=== PATIENT | female | born 1965 ===

== ENCOUNTER 2016-12-29 19:59 | Emergency (ER) | payer OTHER ==
[2016-12-29 20:00] VITALS: BMI 29.2
--- NOTE | 2016-12-29 21:11 | C.PDOC ---
History Of Present Illness A 51 year old female presents to the emergency room for the evaluation of bilateral neck pain over the past few days. Patient describes the pain as a non- radiating, aching sensation that is reproducible and worst with movement. Patient denies any trauma/injury, fever, headaches, dizziness, chest pain, shortness of breath, or any other complaints. At the time of evaluation, patient was eating and leaning forward without any discomfort. Time Seen by Provider: 12/29/16 20:42 Chief Complaint (Nursing): Back Pain History Per: Patient History/Exam Limitations: no limitations Onset/Duration Of Symptoms: Days Current Symptoms Are (Timing): Still Present Quality Of Discomfort: Aching, "Pain" Severity: Mild Previous Symptoms: None Associated Symptoms: None Exacerbating Factor(s): Movement Recent travel outside of the [place]: No Past Medical History Reviewed: Historical Data, Nursing Documentation, Vital Signs Vital Signs: Last Vital Signs Temp 98.2 F 12/29/16 21:16 Pulse 81 12/29/16 21:16 Resp 18 12/29/16 21:16 BP 105/64 12/29/16 21:16 Pulse Ox 97 12/29/16 21:22 - Medical History PMH: Anxiety, Asthma, Bipolar Disorder, COPD, Depression Denies: HIV, HTN, Chronic Kidney Disease, Seizures, Sexually Transmitted Disease Surgical History: Tonsillectomy Family History: States: Unknown Family Hx - Social History Hx Tobacco Use: No Hx Alcohol Use: No Hx Substance Use: No - Immunization History Hx Tetanus Toxoid Vaccination: No Hx Influenza Vaccination: No Hx Pneumococcal Vaccination: No Review Of Systems Except As Marked, All Systems Reviewed And Found Negative. Constitutional: Negative for: Fever Cardiovascular: Negative for: Chest Pain Respiratory: Negative for: Shortness of Breath Musculoskeletal: Positive for: Neck Pain (Bilateral neck pain) Neurological: Negative for: Headache, Dizziness Physical Exam - Physical Exam Appears: Well, Non-toxic, No Acute Distress Skin: Normal Color, Warm, Dry, No Rash, No Ecchymosis Head: Atraumatic, Normacephalic Eye(s): bilateral: Normal Inspection Ear(s): Bilateral: Normal Nose: Normal Oral Mucosa: Moist Throat: Normal, No Erythema, No Exudate Neck: Normal ROM, Supple, Other (Bilateral tenderness aligning the trapezius muscle over the upper back with mild muscle spasms.) Cardiovascular: Rhythm Regular Respiratory: Normal Breath Sounds, No Rales, No Rhonchi, No Wheezing Gastrointestinal/Abdominal: Soft, No Tenderness, No Guarding, No Rebound Back: Normal Inspection, No CVA Tenderness, No Vertebral Tenderness Extremity: Normal ROM, No Tenderness Neurological/Psych: Oriented x3, Normal Speech, Normal Motor, Normal Sensation ED Course And Treatment O2 Sat by Pulse Oximetry: 97 Pulse Ox Interpretation: Normal Progress Note: On re-evaluation, pt is afebrile, hemodynamiclay stable. Tolerate Po well in ED. Ambulatory in ED, not in any apparent distress. PulseOx 97% RA. ENT: (-) acute findings. neck: Exam c/w cervical strain. (-) meningeal sign,. Lungs: CTA B/L, BS equal B/L. Abd: benign, (-) guarding, (-) rebound, (-)loclaized tenderness. Back: (-) CVA tenderness. Pt has clinical findings c/w cervical strain. Parent advised on course of ds. ref. to F/u with PMD in 2-3 days for re-eval. Disposition Counseled Patient/Family Regarding: Diagnosis, Need For Followup, Rx Given - Disposition Referrals: Lanie Soni MD [Medical Doctor] - Disposition: HOME/ ROUTINE Disposition Time: 21:09 Condition: GOOD Additional Instructions: Light duty to neck area take pain medication as prescribed Follow up with PMD In 2-3 days for re-evaluation. Return to ED if any worsening or new changes. Prescriptions: Ibuprofen [Motrin] 400 mg PO Q6 #20 tab Instructions: Cervical Sprain (ED) Print Language: LITHUANIAN - Clinical Impression Clinical Impression: Cervical strain - Scribe Statement The provider has reviewed the documentation as recorded by the Shannon Cervantes Provider Scribe Attestation: All medical record entries made by the Shannon were at my direction and personally dictated by me. I have reviewed the chart and agree that the record accurately reflects my personal performance of the history, physical exam, medical decision making, and the department course for this patient. I have also personally directed, reviewed, and agree with the discharge instructions and disposition.
[2016-12-29 21:16] VITALS: BP 105/64; PULSE 81; RESP 18; TEMP 98.2
[2016-12-29 21:17] VITALS: O2SAT 97
== END 2016-12-29 21:23 | disposition home or self-care (01) ==
LOC: C.ER 19:59
DX: S16.1XXA Strain of muscle, fascia and tendon at neck level, initial encounter (principal); X58.XXXA Exposure to other specified factors, initial encounter; Y93.9 Activity, unspecified; Y92.9 Unspecified place or not applicable

== ENCOUNTER 2017-10-24 17:40 | Emergency (ER) | payer SELFPAY ==
[2017-10-24 18:05] VITALS: BMI 27.8
--- NOTE | 2017-10-24 18:11 | C.PDOC ---
History Of Present Illness 52 year old female presents to the emergency room for the evaluation of Left upper back pain developed for past few days. Patient describes the pain as localized, non-radiating, aching and worst with movement. Patient reports, (+) cold sx for past fe weeks associated with productive cough with clear sputum. Otherwise, Patient denies any trauma/injury, fever, chills, headaches, dizziness , chest pain, shortness of breath, dyspnea, diaphoresis, palpitation, abd. pain , N/V/D, back pain, UTI sx, denies any other complaints. Ambulate to ED, not in any apparent distress. Time Seen by Provider: 10/24/17 18:09 Chief Complaint (Nursing): Back Pain Past Medical History Reviewed: Historical Data, Nursing Documentation, Vital Signs Vital Signs: Last Vital Signs Temp 98.0 F 10/24/17 18:13 Pulse 86 10/24/17 18:13 Resp 18 10/24/17 18:13 BP 112/73 10/24/17 18:13 Pulse Ox 98 10/24/17 18:13 - Medical History PMH: Anxiety, Asthma, Bipolar Disorder, COPD, Depression Denies: HIV, HTN, Chronic Kidney Disease, Seizures, Sexually Transmitted Disease Surgical History: Tonsillectomy Family History: States: Unknown Family Hx - Social History Hx Tobacco Use: No Hx Alcohol Use: No Hx Substance Use: No - Immunization History Hx Tetanus Toxoid Vaccination: No Hx Influenza Vaccination: No Hx Pneumococcal Vaccination: No Review Of Systems Except As Marked, All Systems Reviewed And Found Negative. Constitutional: Negative for: Fever, Chills ENT: Negative for: Throat Pain, Throat Swelling Cardiovascular: Negative for: Chest Pain Respiratory: Positive for: Cough. Negative for: Shortness of Breath, Wheezing Gastrointestinal: Negative for: Nausea, Vomiting, Abdominal Pain Musculoskeletal: Positive for: Back Pain Skin: Negative for: Rash Neurological: Negative for: Weakness, Numbness, Altered Mental Status, Headache , Dizziness Physical Exam - Physical Exam Appears: Well, Non-toxic, No Acute Distress Skin: Normal Color, Warm, Dry, No Rash Head: Normacephalic Eye(s): bilateral: PERRL Nose: No Flaring, No Discharge Oral Mucosa: Moist Throat: No Erythema, No Drooling Neck: Supple Chest: Symmetrical, No Deformity Cardiovascular: Rhythm Regular, No Murmur, No JVD Respiratory: No Decreased Breath Sounds, No Accessory Muscle Use, No Stridor, No Wheezing Gastrointestinal/Abdominal: Soft, No Tenderness, No Distention, No Guarding Back: No CVA Tenderness, No Vertebral Tenderness, Other (Right periscapular tenderness. No skin changes, no palpable deformity.) Extremity: Normal ROM, No Deformity, No Swelling Neurological/Psych: Oriented x3, Normal Speech ED Course And Treatment O2 Sat by Pulse Oximetry: 98 Pulse Ox Interpretation: Normal - Radiology CXR: Interpreted by Me, Viewed By Me CXR Interpretation: Yes: Other (increase peribrochial markings B/L) Progress Note: On re-eval, pt is afebrile, hemodynamicaly stable. NOn-toxic. Ambulatory in ED with stable gait. PusleOx 98% RA. ENT: no acute findings. neck: Supple, (-) JVD, (-) carotid bruits b/L. Lungs: CTA B/L, BS equal B/L. ABd: benign. Neurologicaly intact. CXR review (+) incr. peribrochila markings B/L, (-) consolidation. Pt has clinical findings c/w Right upper back strain, bronchitis. Pt advised. ref. to F/u with PMD in 2-3 days for re-eavl. return to ED if any worsening or new changes. Disposition Counseled Patient/Family Regarding: Studies Performed, Diagnosis, Need For Followup - Disposition Referrals: Robson Petty MD [Non-Staff] - Disposition: HOME/ ROUTINE Disposition Time: 19:31 Condition: STABLE Additional Instructions: take medication as prescribed Follow up with PMD in 2-3 days for re-evaluation. return to ED if any worsening or new changes. Prescriptions: Albuterol HFA [Ventolin HFA 90 mcg/actuation (8 g)] 1 puff IH Q6 #1 inhaler Azithromycin [Zithromax] 250 mg PO DAILY #4 tab Ibuprofen [Motrin] 1 tab PO TID PRN #14 tab PRN Reason: Pain Instructions: Acute Bronchitis (ED) Forms: [employer] (Lao) Print Language: BULGARIAN - Clinical Impression Clinical Impression: Bronchitis
[2017-10-24 18:13] VITALS: BP 112/73; PULSE 86; RESP 18; TEMP 98; O2SAT 98
--- NOTE | 2017-10-25 08:12 | RAD ---
HISTORY: Cough COMPARISON: Portable chest 08/31/2016. TECHNIQUE: Chest PA and lateral FINDINGS: LUNGS: No active pulmonary disease. PLEURA: No significant pleural effusion identified. No pneumothorax apparent. CARDIOVASCULAR: Normal. OSSEOUS STRUCTURES: No significant abnormalities. VISUALIZED UPPER ABDOMEN: Normal. OTHER FINDINGS: None. IMPRESSION: Stable chest radiography. No interval acute infiltrate, pleural effusion or pneumothorax identified.
== END 2017-10-24 20:04 | disposition home or self-care (01) ==
LOC: C.ER 17:40
DX: J40 Bronchitis, not specified as acute or chronic (principal)

== ENCOUNTER 2017-12-22 18:27 | Emergency (ER) | payer MEDICARE, MEDICAID ==
[2017-12-22 18:53] VITALS: RESP 18; TEMP 98; O2SAT 99; BMI 32.5
--- NOTE | 2017-12-22 20:35 | C.PDOC ---
History Of Present Illness 52-year-old female, presents to the emergency department with complaints of two month duration of right elbow pain s/p slamming elbow in door 10/26. Patient denies numbness/weakness. Time Seen by Provider: 12/22/17 19:07 Chief Complaint (Nursing): Upper Extremity Problem/Injury History Per: Patient History/Exam Limitations: no limitations Current Symptoms Are (Timing): Still Present Pain Scale Rating Of: 5 Recent travel outside of the [place]: No Past Medical History Reviewed: Historical Data, Nursing Documentation, Vital Signs Vital Signs: Last Vital Signs Temp 98.0 F 12/22/17 20:48 Pulse 90 12/22/17 20:48 Resp 18 12/22/17 20:48 BP 108/70 12/22/17 20:48 Pulse Ox 99 12/22/17 22:00 - Medical History PMH: Anxiety, Asthma, Bipolar Disorder, COPD, Depression Denies: HIV, HTN, Chronic Kidney Disease, Seizures, Sexually Transmitted Disease Surgical History: Tonsillectomy Family History: States: No Known Family Hx - Social History Hx Tobacco Use: No Hx Alcohol Use: No Hx Substance Use: No - Immunization History Hx Tetanus Toxoid Vaccination: No Hx Influenza Vaccination: No Hx Pneumococcal Vaccination: No Review Of Systems Except As Marked, All Systems Reviewed And Found Negative. Constitutional: Negative for: Fever Musculoskeletal: Positive for: Other (right elbow pain) Neurological: Negative for: Weakness, Numbness Physical Exam - Physical Exam Appears: Well, Non-toxic, No Acute Distress Skin: Normal Color, Warm, Dry, No Rash Head: Atraumatic, Normacephalic Eye(s): bilateral: Normal Inspection, PERRL, EOMI Oral Mucosa: Moist Neck: Normal ROM, Supple Extremity: Normal ROM, Capillary Refill (<2 seconds), No Deformity, Other ( Minimal tenderness and swelling to right lateral elbow. FROM) Pulses: Left Brachial: Normal, Right Brachial: Normal, Left Radial: Normal, Right Radial: Normal Neurological/Psych: Oriented x3, Normal Speech, Normal Motor, Normal Sensation Gait: Steady ED Course And Treatment O2 Sat by Pulse Oximetry: 99 (RA) Pulse Ox Interpretation: Normal Disposition - Disposition Referrals: [facility] [Outside] Disposition: HOME/ ROUTINE Disposition Time: 20:15 Condition: FAIR Additional Instructions: Follow up with the medical doctor within 1-2 days. Return if worsened. Prescriptions: Cyclobenzaprine [Cyclobenzaprine HCl] 10 mg PO BID #14 tab Naproxen [Naprosyn] 500 mg PO BID #20 tab Instructions: Tendonitis Forms: [facility] [employer] (Kiswahili) Print Language: BRUNEIAN - POA Present On Arrival: None - Clinical Impression Clinical Impression: Tendonitis - Scribe Statement The provider has reviewed the documentation as recorded by the Scribe (Kelsea Gee) All medical record entries made by the Scribe were at my direction and personally dictated by me. I have reviewed the chart and agree that the record accurately reflects my personal performance of the history, physical exam, medical decision making, and the department course for this patient. I have also personally directed, reviewed, and agree with the discharge instructions and disposition.
[2017-12-22 20:49] VITALS: BP 108/70; PULSE 90
--- NOTE | 2017-12-23 09:13 | RAD ---
PROCEDURE: Radiographs of the right elbow. HISTORY: ELBOW INJURY 2 months ago COMPARISON: No prior. FINDINGS: BONES: Normal. No fracture. JOINTS: Normal. No osteoarthritis. SOFT TISSUES: Normal. JOINT EFFUSION: None. OTHER FINDINGS: None. IMPRESSION: Unremarkable radiographs of the right elbow.
== END 2017-12-22 20:48 | disposition home or self-care (01) ==
LOC: C.ER 18:27
DX: M77.9 Enthesopathy, unspecified (principal)

== ENCOUNTER 2017-12-30 14:38 | Emergency (ER) | payer MEDICARE, MEDICAID ==
[2017-12-30 14:39] VITALS: BMI 27.8
[2017-12-30 14:50] VITALS: BP 107/75
[2017-12-30] MEDS ORDERED: Albuterol-Ipratrop 3 mg / 0.5 (3 ml) UD ONE (15:28)
[2017-12-30] MEDS: Albuterol-Ipratrop 3 mg / 0.5 (3 ml) UD IH SCH (15:33)
--- NOTE | 2017-12-30 15:56 | C.PDOC ---
History Of Present Illness 52 year old female presents to the emergency room with sudden onset of wheezing. Patient reports that she ate a "spicy onion" in a salad, which resulted in palpitation, difficulty breathing, and dryness in her throat. Patient reports that she is asthmatic, and ran out of her medication last night. Denies fever, chest pain, hemoptysis. Time Seen by Provider: 12/30/17 15:05 Chief Complaint (Nursing): Shortness Of Breath History Per: Patient History/Exam Limitations: no limitations Onset/Duration Of Symptoms: Sudden Onset Initiating Event: Out Of Medications, Other (consuming a "spicy onion") Current Respiratory Medications: Albuterol (ran out of it) Associated Symptoms: Other (difficulty breathing) Past Medical History Reviewed: Historical Data, Nursing Documentation, Vital Signs Vital Signs: Last Vital Signs Temp 97.8 F 12/30/17 14:48 Pulse 99 H 12/30/17 14:48 Resp 20 12/30/17 16:21 BP 107/75 12/30/17 14:48 Pulse Ox 98 12/30/17 16:31 - Medical History PMH: Anxiety, Asthma, Bipolar Disorder, COPD, Depression Denies: HIV, HTN, Chronic Kidney Disease, Seizures, Sexually Transmitted Disease Surgical History: No Surg Hx, Tonsillectomy Family History: States: No Known Family Hx - Social History Hx Tobacco Use: No Hx Alcohol Use: No Hx Substance Use: No - Immunization History Hx Tetanus Toxoid Vaccination: No Hx Influenza Vaccination: No Hx Pneumococcal Vaccination: No Review Of Systems Except As Marked, All Systems Reviewed And Found Negative. ENT: Positive for: Other (dryness in throat) Cardiovascular: Positive for: Palpitations Respiratory: Positive for: Shortness of Breath, Wheezing Physical Exam - Physical Exam Appears: Well, Non-toxic Skin: Normal Color Head: Atraumatic, Normacephalic Eye(s): bilateral: Normal Inspection Ear(s): Bilateral: Normal Nose: Normal Oral Mucosa: Moist Tongue: Normal Appearing Neck: Normal, Supple Cardiovascular: Rhythm Regular Respiratory: Wheezing (mild wheezing bilaterally) Gastrointestinal/Abdominal: Soft, No Tenderness Neurological/Psych: Oriented x3, Normal Speech, Normal Cognition ED Course And Treatment O2 Sat by Pulse Oximetry: 98 (RA) Pulse Ox Interpretation: Normal Progress Note: Patient administered prednisone 40mg PO and albuterol 3mg IH. Patient is clear for discharge home. Medical Decision Making Medical Decision Making: On re-exam, the patient reports improvement of symptoms. Lungs are CTA, heart is RRR, abdomen is soft, non-tender and tolerating Po well. Follow up with the medical doctor/clinic within 1-2 days. Return if worsened. Disposition - Disposition Referrals: Robson Petty MD [Non-Staff] - Disposition: HOME/ ROUTINE Disposition Time: 16:24 Condition: GOOD Additional Instructions: Follow up with the medical doctor/clinic within 1-2 days. Return if worsened. 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 - Scribe Statement The provider has reviewed the documentation as recorded by the Scribe (Jet Cooper) All medical record entries made by the Scribe were at my direction and personally dictated by me. I have reviewed the chart and agree that the record accurately reflects my personal performance of the history, physical exam, medical decision making, and the department course for this patient. I have also personally directed, reviewed, and agree with the discharge instructions and disposition.
[2017-12-30 16:40] VITALS: PULSE 92; RESP 18; TEMP 97.9; O2SAT 99
== END 2017-12-30 17:04 | disposition home or self-care (01) ==
LOC: C.ER 14:38
DX: J45.909 Unspecified asthma, uncomplicated (principal)

== ENCOUNTER 2018-02-09 13:09 | Emergency (ER) | payer MEDICARE, OTHER ==
[2018-02-09 13:35] VITALS: BMI 26.5
[2018-02-09] MEDS ORDERED: Sodium Chloride 0.9% 1,000 ML IV ONE (13:49)
[2018-02-09] MEDS ORDERED: DiphenhydrAMINE 50 mg/ml Inj IVP STA (13:50)
[2018-02-09] MEDS ORDERED: Albuterol 0.083% Inhal Sol (2.5 mg/3 mL) UD IH STA (13:51)
[2018-02-09] MEDS ORDERED: DiphenhydrAMINE 50 mg/ml Inj ONE (14:00)
[2018-02-09] MEDS ORDERED: Albuterol 0.083% Inhal Sol (2.5 mg/3 mL) UD ONE (14:01)
[2018-02-09] MEDS ORDERED: Sodium Chloride 0.9% 1,000 ML ONE (14:01)
--- NOTE | 2018-02-09 14:16 | C.PDOC ---
History Of Present Illness 52 y/o female with history of COPD and Asthma presents to ED with c/o dizziness for the last three days. Describes the dizziness as "spinning", worse with head movement. Pt notes she was cleaning rat poison in her home with a small broom and dizziness increased prompting ED visit. Notes that the pellets were there for one week. States she did not touch it or ingest it. Also notes she developed rash to left arm which is itchy. Denies chest pain, sob, nausea, vomiting, cough, difficulty breathing or swallowing, no tongue swelling or any other complaints at this time. Time Seen by Provider: 02/09/18 13:29 Chief Complaint (Nursing): Allergic Reaction History Per: Patient History/Exam Limitations: no limitations Onset/Duration Of Symptoms: Days Current Symptoms Are (Timing): Still Present Possible Cause: Other (Rat poison) Past Medical History Reviewed: Historical Data, Nursing Documentation, Vital Signs Vital Signs: Last Vital Signs Temp 98.1 F 02/09/18 15:50 Pulse 82 02/09/18 15:50 Resp 18 02/09/18 15:50 BP 118/72 02/09/18 15:50 Pulse Ox 99 02/10/18 17:01 - Medical History PMH: Anxiety, Asthma, Bipolar Disorder, COPD, Depression Surgical History: Tonsillectomy Family History: States: No Known Family Hx - Social History Hx Tobacco Use: No Hx Alcohol Use: No Hx Substance Use: No - Immunization History Hx Tetanus Toxoid Vaccination: No Hx Influenza Vaccination: No Hx Pneumococcal Vaccination: No Review Of Systems Constitutional: Negative for: Fever, Chills Cardiovascular: Negative for: Chest Pain Respiratory: Negative for: Cough, Shortness of Breath Gastrointestinal: Negative for: Nausea, Vomiting Skin: Positive for: Rash Neurological: Positive for: Numbness (to tongue), Dizziness. Negative for: Weakness Physical Exam - Physical Exam Appears: Non-toxic, No Acute Distress, Other (anxious) Skin: Warm, Dry, No Rash Head: Atraumatic, Normacephalic Eye(s): bilateral: Normal Inspection, PERRL, EOMI Ear(s): Bilateral: Normal, Other (No nystagnus) Nose: Normal Oral Mucosa: Moist Throat: Normal, No Erythema, No Exudate Neck: Normal ROM, Supple Chest: Symmetrical Cardiovascular: Rhythm Regular Respiratory: Normal Breath Sounds, No Accessory Muscle Use, No Rales, No Rhonchi , No Wheezing Gastrointestinal/Abdominal: Soft, No Tenderness, No Guarding, No Rebound Extremity: Normal ROM Neurological/Psych: Oriented x3, Normal Speech, Normal Cognition ED Course And Treatment - Laboratory Results Result Diagrams: 02/09/18 14:13 02/09/18 14:13 ECG: Interpreted By Me, Viewed By Me ECG Rhythm: Sinus Rhythm Rate From EC (BPM) O2 Sat by Pulse Oximetry: 99 (RA) Pulse Ox Interpretation: Normal - CT Scan/US CT head Other Rad Studies (CT/US): Read By Radiologist, Radiology Report Reviewed CT/US Interpretation: PROCEDURE: CT HEAD WITHOUT CONTRAST. HISTORY: R/O Bleed. COMPARISON: None available. TECHNIQUE: Axial computed tomography images were obtained through the head/brain without intravenous contrast. Radiation dose: Total exam DLP = 741.65 mGy-cm. This CT exam was performed using one or more of the following dose reduction techniques: Automated exposure control, adjustment of the mA and/or kV according to patient size, and/ or use of iterative reconstruction technique. FINDINGS: HEMORRHAGE: No intracranial hemorrhage. BRAIN: No mass effect or edema. No atrophy or chronic microvascular ischemic changes. VENTRICLES: Unremarkable. No hydrocephalus. CALVARIUM: Unremarkable. PARANASAL SINUSES: Unremarkable as visualized. No significant inflammatory changes. MASTOID AIR CELLS: Unremarkable as visualized. No inflammatory changes. OTHER FINDINGS: None. IMPRESSION: Normal CT of the Head. No intracranial mass, hemorrhage or evidence of acute infarct. Progress Note: Blood work, UA , CT scan head ordered. Neb treatment, Antivert, Benadryl and IV fluids administered. On reassessment, patient is resting comfortably, is tolerating PO, and pain has improved. Patient has no neurologic deficit, photophobia, rash, fever, or nuchal rigidity. Steady gait, no dizziness. No intraoral swelling, lungs cta, no tongue/ lip swelling. No spreading of rash. Patient was instructed to follow up with physician/clinic in 1-2 days. Disposition - Disposition Disposition: HOME/ ROUTINE Disposition Time: 15:35 Condition: STABLE Additional Instructions: Follow up with your PMD in 1-2 days. Return to ER If symptoms persist or worsen. Tiffanie un seguimiento con hayes PMD en 1-2 salmeron. Regresar a la byron de emergencias si los sntomas persisten o empeoran. 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 - Scribe Statement The provider has reviewed the documentation as recorded by the Aleeibelvira Oden All medical record entries made by the Shannon were at my direction and personally dictated by me. I have reviewed the chart and agree that the record accurately reflects my personal performance of the history, physical exam, medical decision making, and the department course for this patient. I have also personally directed, reviewed, and agree with the discharge instructions and disposition.
[2018-02-09 14:19] LABS: BASO # 0.1 K/uL (0.0-0.2); BASO % 0.9 % (0.0-2.0); EOS # 0.3 K/uL (0.0-0.7); EOS % 3.7 % (0.0-4.0); HEMOGLOBIN 14.9 g/dL (11.0-16.0); LYMPH # 2.1 K/uL (1.0-4.3); LYMPH % 24.7 % (20.0-40.0); MEAN CELL VOLUME 87.9 fL (81.0-99.0); MEAN CORPUSCULAR HEMOGLOBIN 31.4 pg (27.0-31.0); MEAN CORPUSCULAR HGB CONC 35.8 g/dL (33.0-37.0); MEAN PLATELET VOLUME 8.3 fL (7.2-11.7); MONO # 0.7 K/uL (0.0-0.8); MONO % 8.2 % (0.0-10.0); NEUT # 5.4 K/uL (1.8-7.0); NEUT % 62.5 % (50.0-75.0); NRBC % 0.1 % (0.0-2.0); RBC 4.75 Mil/uL (3.80-5.20); RED CELL DISTRIBUTION WIDTH 12.2 % (11.5-14.5); SQUAMOUS EPITHIAL < 1 /hpf (0-5); URINE BILIRUBIN NEGATIVE (NEGATIVE); URINE BLOOD NEGATIVE (NEGATIVE); URINE CLARITY Clear (Clear); URINE COLOR Straw (YELLOW); URINE GLUCOSE (UA) NORMAL (Normal); URINE LEUKOCYTE ESTERASE NEG Leu/uL (Negative); URINE PROTEIN NEGATIVE (NEGATIVE); URINE UROBILINOGEN NORMAL mg/dL (0.2-1.0); WHITE BLOOD COUNT 8.7 K/uL (4.8-10.8)
[2018-02-09 14:31] LABS: ALB/GLOB RATIO 1.2 (1.0-2.1); ALBUMIN 4.2 g/dL (3.5-5.0); ALT/SGPT 28 U/L (9-52); AST/SGOT 49 U/L (14-36); BLOOD UREA NITROGEN 12 mg/dL (7-17); CALCIUM 9.3 mg/dl (8.6-10.4); GFR AFRICAN-AMERICAN > 60; GFR NON-AFRICAN AMERICAN > 60
[2018-02-09 14:42] LABS: CK-MB 1.04 ng/mL (0.0-3.38); PROTHROMBIN TIME 11.3 SECONDS (9.7-12.2)
--- NOTE | 2018-02-09 14:44 | CT ---
PROCEDURE: CT HEAD WITHOUT CONTRAST. HISTORY: R/O Bleed COMPARISON: None available. TECHNIQUE: Axial computed tomography images were obtained through the head/brain without intravenous contrast. Radiation dose: Total exam DLP = 741.65 mGy-cm. This CT exam was performed using one or more of the following dose reduction techniques: Automated exposure control, adjustment of the mA and/or kV according to patient size, and/or use of iterative reconstruction technique. FINDINGS: HEMORRHAGE: No intracranial hemorrhage. BRAIN: No mass effect or edema. No atrophy or chronic microvascular ischemic changes. VENTRICLES: Unremarkable. No hydrocephalus. CALVARIUM: Unremarkable. PARANASAL SINUSES: Unremarkable as visualized. No significant inflammatory changes. MASTOID AIR CELLS: Unremarkable as visualized. No inflammatory changes. OTHER FINDINGS: None. IMPRESSION: Normal CT of the Head. No intracranial mass, hemorrhage or evidence of acute infarct.
[2018-02-09 15:51] VITALS: BP 118/72; PULSE 82; RESP 18; TEMP 98.1
[2018-02-10 17:01] VITALS: O2SAT 99
--- NOTE | 2018-02-12 15:57 | CARD ---
APPROVED REPORT EKG Measurement Heart [id number] ID [id number] <Conclusion> Normal sinus rhythm Normal ECG
== END 2018-02-09 15:52 | disposition home or self-care (01) ==
LOC: C.ER 13:09
DX: R21 Rash and other nonspecific skin eruption (principal); R42 Dizziness and giddiness
CPT/HCPCS: 70450; 80053; 81001; 82550; 82553; 82948; 84484; 85025; 85610; 85730; 96361; 96374; 99285; J1200; J7040

== ENCOUNTER 2018-04-29 21:48 | Emergency (ER) | payer MEDICARE, OTHER ==
[2018-04-29 21:48] VITALS: BMI 26.5
[2018-04-29 22:00] VITALS: BP 115/71; PULSE 84; TEMP 98.4; O2SAT 97
--- NOTE | 2018-04-29 22:16 | C.PDOC ---
History Of Present Illness Patient complains of generalized headache since yesterday and unable to sleep. She reports feeling stressed and anxious. Additionally patient complains of pain to left leg, has varicose veins and both legs feel heavy at times and she feels tired from not sleeping and unable to work. Denies any suicidal or homicidal ideation. Denies vision changes, dizziness, vomiting. Time Seen by Provider: 04/29/18 22:05 Chief Complaint (Nursing): Lower Extremity Problem/Injury History Per: Patient History/Exam Limitations: no limitations Onset/Duration Of Symptoms: Days Past Medical History Reviewed: Historical Data, Nursing Documentation, Vital Signs Vital Signs: Last Vital Signs Temp 98.4 F 04/29/18 21:55 Pulse 84 04/29/18 21:55 Resp 20 04/29/18 22:35 BP 115/71 04/29/18 21:55 Pulse Ox 97 04/29/18 22:18 - Medical History PMH: Anxiety, Asthma, Bipolar Disorder, COPD, Depression Surgical History: Tonsillectomy Family History: States: Unknown Family Hx - Social History Hx Tobacco Use: No Hx Alcohol Use: No Hx Substance Use: No - Immunization History Hx Tetanus Toxoid Vaccination: No Hx Influenza Vaccination: No Hx Pneumococcal Vaccination: No Review Of Systems Constitutional: Positive for: Malaise. Negative for: Fever, Weakness Eyes: Negative for: Vision Change Cardiovascular: Negative for: Chest Pain, Palpitations Respiratory: Negative for: Cough, Shortness of Breath Gastrointestinal: Positive for: Diarrhea (2 days). Negative for: Abdominal Pain Musculoskeletal: Negative for: Neck Pain, Back Pain, Leg Pain Skin: Negative for: Rash Neurological: Negative for: Weakness, Numbness, Headache, Dizziness Psych: Positive for: Anxiety. Negative for: Depression, Suicidal ideation Physical Exam - Physical Exam Appears: Well, Non-toxic, No Acute Distress Skin: Warm, Dry, No Diaphoretic, No Pale, No Rash Head: Atraumatic, Normacephalic Eye(s): bilateral: Normal Inspection, PERRL, EOMI Ear(s): Bilateral: Normal Nose: Normal Oral Mucosa: Moist Tongue: Normal Appearing Throat: Normal, No Erythema, No Exudate, No Drooling Neck: Normal ROM, No Paracervical Tenderness Chest: Symmetrical, No Tenderness Cardiovascular: Rhythm Regular, No Murmur Respiratory: Normal Breath Sounds, No Rales, No Rhonchi, No Wheezing Gastrointestinal/Abdominal: Bowel Sounds, Soft, No Tenderness, No Distention, No Guarding Back: Normal Inspection, No CVA Tenderness Extremity: Normal ROM, No Tenderness, No Calf Tenderness, No Deformity, No Swelling, Other (varicose veins to left lower extremity) Pulses: Left Radial: Normal Neurological/Psych: Oriented x3, Normal Speech, Normal Motor, Normal Sensation Gait: Steady ED Course And Treatment O2 Sat by Pulse Oximetry: 97 Medical Decision Making Medical Decision Making: Patient with complaints of headache, anxiety, sleeping difficulty, leg pains. Patient exam unremarkable. Clinical signs and symptoms, are not suggestive of sepsis, meningitis, DVT, or cellulitis. Treated with Motrin and Benadryl. She remained afebrile and in no acute distress. She has no neuro deficits and stable vital signs. Recommend elevation and compression stocking for leg and can follow up outpatient. Recommend analgesics, rest, and benadryl to help with sleep. Can also follow up with [facility] if symptoms persist. Will discharge home, and instructed to follow up with her physician in 1-2 days without fail. Patient was instructed to return for any worsening symptoms, persistent fever, neck pain, vomiting, rash, SOB. Disposition Counseled Patient/Family Regarding: Diagnosis, Need For Followup, Rx Given - Disposition Referrals: Robson Petty MD [Primary Care Provider] - Disposition: HOME/ ROUTINE Disposition Time: 22:35 Condition: STABLE Additional Instructions: Vaya a hayes mdico o la clnica en 2-5 salmeron sin falta, para mas evaluacin. [facility] los medicamentos antwon indicado. Volver a la byron de emergencia en cualquier momento si los sntomas persisten o empeoran. Prescriptions: Acetaminophen/Butalbital/Caf [Fioricet] 1 tab PO TID PRN #20 tab PRN Reason: Headache DiphenhydrAMINE [Benadryl] 25 mg PO Q4 PRN #30 cap PRN Reason: Rash Instructions: Headache, Adult (DC) Forms: [employer] (Polish) Print Language: BENGALI - POA Present On Arrival: None - Clinical Impression Clinical Impression: Headache, Anxiety, Varicose vein of leg
[2018-04-29 22:35] VITALS: RESP 20
== END 2018-04-29 22:35 | disposition home or self-care (01) ==
LOC: SUPCPDRO 21:48 → C.ER 21:48
DX: R51 Headache (principal); F41.9 Anxiety disorder, unspecified; I83.92 Asymptomatic varicose veins of left lower extremity

== ENCOUNTER 2018-07-15 21:34 | Emergency (ER) | payer OTHER ==
[2018-07-15 21:35] VITALS: BMI 26.5
[2018-07-15 22:17] VITALS: BP 112/75; PULSE 83; RESP 20; TEMP 98.4; O2SAT 99
[2018-07-15] MEDS ORDERED: Albuterol 0.083% Inhal Sol (2.5 mg/3 mL) UD ONE ×2 (22:26→22:45)
[2018-07-15] MEDS ORDERED: Albuterol 0.083% Inhal Sol (2.5 mg/3 mL) UD INH STA ×2 (22:28→22:50)
--- NOTE | 2018-07-15 23:28 | C.PDOC ---
History Of Present Illness 53 year old female with PMHx of asthma presents to the ED c/o SOB and chest tightness. Patient also reports having mild non productive cough as well. Patient states she thinks her nebulizer at home is not working properly. Patient denies fever, chills, CP, palpitations, dizziness, weakness, numbness. Time Seen by Provider: 07/15/18 22:30 Chief Complaint (Nursing): Shortness Of Breath History Per: Patient History/Exam Limitations: no limitations Onset/Duration Of Symptoms: Days Current Symptoms Are (Timing): Still Present Initiating Event: Upper Respiratory Illness Quality: Tightness Exacerbating Factor(s): Coughing Current Respiratory Medications: See Home Med List Recent travel outside of the [place]: No Additional History Per: Patient Past Medical History Reviewed: Historical Data, Nursing Documentation, Vital Signs Vital Signs: Last Vital Signs Temp 98.4 F 07/15/18 22:12 Pulse 83 07/15/18 22:12 Resp 20 07/15/18 22:12 BP 112/75 07/15/18 22:12 Pulse Ox 99 07/15/18 22:12 - Medical History PMH: Anxiety, Asthma, Bipolar Disorder, COPD, Depression Denies: HIV, HTN, Chronic Kidney Disease, Seizures, Sexually Transmitted Disease Surgical History: Tonsillectomy Family History: States: Unknown Family Hx - Social History Hx Tobacco Use: No Hx Alcohol Use: No Hx Substance Use: No - Immunization History Hx Tetanus Toxoid Vaccination: No Hx Influenza Vaccination: No Hx Pneumococcal Vaccination: No Review Of Systems Constitutional: Negative for: Fever, Chills Cardiovascular: Negative for: Chest Pain, Palpitations Respiratory: Positive for: Cough, Shortness of Breath. Negative for: Sputum Gastrointestinal: Negative for: Nausea, Vomiting Neurological: Negative for: Weakness, Numbness, Headache, Dizziness Physical Exam - Physical Exam Appears: Non-toxic, No Acute Distress Skin: Normal Color, Warm, Dry Head: Atraumatic, Normacephalic Eye(s): bilateral: Normal Inspection Neck: Normal ROM, Supple Chest: Symmetrical Cardiovascular: Rhythm Regular Respiratory: Decreased Breath Sounds, No Rales, No Rhonchi, Wheezing (expiratory) Gastrointestinal/Abdominal: Soft, No Tenderness, No Guarding, No Rebound Extremity: Normal ROM, No Tenderness, No Swelling Neurological/Psych: Oriented x3, Normal Speech, Normal Cognition Gait: Steady ED Course And Treatment O2 Sat by Pulse Oximetry: 99 (ON RA) Pulse Ox Interpretation: Normal Progress Note: Plan: - Albuterol nebulizer X2. - Prednisone 60 mg PO. On reassessment, patient is resting comfortably with no wheezing, chest pain, or retractions. Oxygen saturation and breath sounds have improved. Patient is alert and oriented x 3. Patient was advised to follow up with physician/clinic in 1-2 days and return to ED if symptoms worsen or persist. 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 - Scribe Statement The provider has reviewed the documentation as recorded by the Scribe Mario Smith All medical record entries made by the Scribe were at my direction and personally dictated by me. I have reviewed the chart and agree that the record accurately reflects my personal performance of the history, physical exam, medical decision making, and the department course for this patient. I have also personally directed, reviewed, and agree with the discharge instructions and disposition.
== END 2018-07-15 23:46 | disposition home or self-care (01) ==
LOC: C.ER 21:34
DX: J45.901 Unspecified asthma with (acute) exacerbation (principal)

== ENCOUNTER 2019-02-07 15:54 | Emergency (ER) | payer OTHER ==
[2019-02-07 15:54] VITALS: BMI 26.5
[2019-02-07 16:10] VITALS: TEMP 98
[2019-02-07 17:23] LABS: BASO # 0.1 K/uL (0.0-0.2); BASO % 0.9 % (0.0-2.0); EOS # 0.5 K/uL (0.0-0.7); EOS % 7.6 % (0.0-4.0); LYMPH % 28.7 % (20.0-40.0); MEAN CELL VOLUME 87.5 fL (81.0-99.0); MEAN CORPUSCULAR HEMOGLOBIN 31.2 pg (27.0-31.0); MEAN CORPUSCULAR HGB CONC 35.7 g/dL (33.0-37.0); MEAN PLATELET VOLUME 8.2 fL (7.2-11.7); MONO # 0.7 K/uL (0.0-0.8); MONO % 9.4 % (0.0-10.0); NEUT # 3.7 K/uL (1.8-7.0); NEUT % 53.4 % (50.0-75.0); NRBC % 0.1 % (0.0-2.0); RBC 4.48 Mil/uL (3.80-5.20); RED CELL DISTRIBUTION WIDTH 12.4 % (11.5-14.5)
[2019-02-07 17:28] LABS: SQUAMOUS EPITHIAL < 1 /hpf (0-5); URINE BILIRUBIN NEGATIVE (NEGATIVE); URINE BLOOD NEGATIVE (NEGATIVE); URINE CLARITY Clear (Clear); URINE COLOR Straw (YELLOW); URINE GLUCOSE (UA) NORMAL (Normal); URINE LEUKOCYTE ESTERASE NEG Leu/uL (Negative); URINE PROTEIN NEGATIVE (NEGATIVE); URINE UROBILINOGEN NORMAL mg/dL (0.2-1.0)
[2019-02-07] MEDS ORDERED: Iohexol 240 (50 ml) ONE (17:35)
[2019-02-07 17:36] LABS: ALB/GLOB RATIO 1.4 (1.0-2.1); ALBUMIN 4.2 g/dL (3.5-5.0); ALT/SGPT 33 U/L (9-52); AST/SGOT 45 U/L (14-36); BLOOD UREA NITROGEN 8 mg/dL (7-17); CALCIUM 9.5 mg/dl (8.6-10.4); GFR NON-AFRICAN AMERICAN > 60; LIPASE 108 U/L (23-300)
[2019-02-07] MEDS ORDERED: Iohexol 240 (50 ml) PO STA (18:02)
--- NOTE | 2019-02-07 18:29 | C.PDOC ---
History Of Present Illness 53 y/o female presents to the ER complaining of LLQ abdominal pain. Patient states that she was evaluated for same complaint in [facility]. At the time, she was diagnosed with constipation and she was prescribed medications. Patient reports that she took the medications without relief.Denies having fever,chills, nausea, vomiting, and urinary symptoms. <Janie Leal - Last Filed: 02/07/19 18:48> History Per: Patient History/Exam Limitations: no limitations Onset/Duration Of Symptoms: Days Current Symptoms Are (Timing): Still Present Severity: Moderate <Janie Leal - Last Filed: 02/07/19 18:48> <Leigh Merino - Last Filed: 02/07/19 20:52> Time Seen by Provider: 02/07/19 16:19 Chief Complaint (Nursing): Abdominal Pain Past Medical History Reviewed: Historical Data, Nursing Documentation, Vital Signs Vital Signs: Last Vital Signs Temp 98 F 02/07/19 16:08 Pulse 85 02/07/19 16:08 Resp 18 02/07/19 16:08 BP 116/72 02/07/19 16:08 Pulse Ox 97 02/07/19 16:08 Primary Care Provider: Thaddeus Marrufo - Medical History PMH: Anxiety, Asthma, Bipolar Disorder, COPD, Depression Denies: HIV, HTN, Chronic Kidney Disease, Seizures, Sexually Transmitted Disease Surgical History: Tonsillectomy Family History: States: No Known Family Hx - Social History Hx Tobacco Use: No Hx Alcohol Use: No Hx Substance Use: No - Immunization History Hx Tetanus Toxoid Vaccination: No Hx Influenza Vaccination: No Hx Pneumococcal Vaccination: No <Janie Leal - Last Filed: 02/07/19 18:48> Vital Signs: Last Vital Signs Temp 98 F 02/07/19 16:08 Pulse 85 02/07/19 16:08 Resp 18 02/07/19 16:08 BP 116/72 02/07/19 16:08 Pulse Ox 97 02/07/19 18:49 <Leigh Merino - Last Filed: 02/07/19 20:52> Review Of Systems Except As Marked, All Systems Reviewed And Found Negative. Constitutional: Negative for: Fever, Chills Gastrointestinal: Positive for: Abdominal Pain. Negative for: Nausea, Vomiting, Diarrhea <Janie Leal - Last Filed: 02/07/19 18:48> Physical Exam - Physical Exam Appears: Non-toxic, No Acute Distress Skin: Normal Color, Warm, Dry Head: Atraumatic, Normacephalic Eye(s): bilateral: Normal Inspection Nose: Normal Oral Mucosa: Moist Neck: Supple Chest: Symmetrical Cardiovascular: Rhythm Regular Respiratory: Normal Breath Sounds, No Rales, No Rhonchi, No Wheezing Gastrointestinal/Abdominal: Soft, Tenderness (LLQ tenderness), Guarding, No Rebound Neurological/Psych: Oriented x3, Normal Speech <ZanechrissyJanie - Last Filed: 02/07/19 18:48> ED Course And Treatment - Laboratory Results Result Diagrams: 02/07/19 17:16 02/07/19 17:16 Lab Results: Total Bilirubin 0.6 mg/dL (0.2-1.3) 02/07/19 17:16 AST 45 U/L (14-36) H 02/07/19 17:16 ALT 33 U/L (9-52) 02/07/19 17:16 Alkaline Phosphatase 64 U/L (38-126) 02/07/19 17:16 Total Protein 7.2 g/dL (6.3-8.3) 02/07/19 17:16 Albumin 4.2 g/dL (3.5-5.0) 02/07/19 17:16 Globulin 3.0 gm/dL (2.2-3.9) 02/07/19 17:16 Albumin/Globulin Ratio 1.4 (1.0-2.1) 02/07/19 17:16 Lipase 108 U/L (23-300) 02/07/19 17:16 Urine Color Straw (YELLOW) 02/07/19 17:16 Urine Clarity Clear (Clear) 02/07/19 17:16 Urine pH 8.0 (5.0-8.0) 02/07/19 17:16 Ur Specific [place] 1.008 (1.003-1.030) 02/07/19 17:16 Urine Protein Negative mg/dL (NEGATIVE) 02/07/19 17:16 Urine Glucose (UA) Normal mg/dL (Normal) 02/07/19 17:16 Urine Ketones Negative mg/dL (NEGATIVE) 02/07/19 17:16 Urine Blood Negative (NEGATIVE) 02/07/19 17:16 Urine Nitrate Negative (NEGATIVE) 02/07/19 17:16 Urine Bilirubin Negative (NEGATIVE) 02/07/19 17:16 Urine Urobilinogen Normal mg/dL (0.2-1.0) 02/07/19 17:16 Ur Leukocyte Esterase Neg Cori/uL (Negative) 02/07/19 17:16 Urine WBC (Auto) 1 /hpf (0-5) 02/07/19 17:16 Urine RBC (Auto) 1 /hpf (0-3) 02/07/19 17:16 Ur Squamous Epith Cells < 1 /hpf (0-5) 02/07/19 17:16 O2 Sat by Pulse Oximetry: 97 (RA) Pulse Ox Interpretation: Normal Progress Note: Labs,UA, and CT-Abd & Pelv. ordered. <Janie Leal - Last Filed: 02/07/19 18:48> - Laboratory Results Result Diagrams: 02/07/19 17:16 02/07/19 17:16 Lab Results: Total Bilirubin 0.6 mg/dL (0.2-1.3) 02/07/19 17:16 AST 45 U/L (14-36) H 02/07/19 17:16 ALT 33 U/L (9-52) 02/07/19 17:16 Alkaline Phosphatase 64 U/L (38-126) 02/07/19 17:16 Total Protein 7.2 g/dL (6.3-8.3) 02/07/19 17:16 Albumin 4.2 g/dL (3.5-5.0) 02/07/19 17:16 Globulin 3.0 gm/dL (2.2-3.9) 02/07/19 17:16 Albumin/Globulin Ratio 1.4 (1.0-2.1) 02/07/19 17:16 Lipase 108 U/L (23-300) 02/07/19 17:16 Urine Color Straw (YELLOW) 02/07/19 17:16 Urine Clarity Clear (Clear) 02/07/19 17:16 Urine pH 8.0 (5.0-8.0) 02/07/19 17:16 Ur Specific [place] 1.008 (1.003-1.030) 02/07/19 17:16 Urine Protein Negative mg/dL (NEGATIVE) 02/07/19 17:16 Urine Glucose (UA) Normal mg/dL (Normal) 02/07/19 17:16 Urine Ketones Negative mg/dL (NEGATIVE) 02/07/19 17:16 Urine Blood Negative (NEGATIVE) 02/07/19 17:16 Urine Nitrate Negative (NEGATIVE) 02/07/19 17:16 Urine Bilirubin Negative (NEGATIVE) 02/07/19 17:16 Urine Urobilinogen Normal mg/dL (0.2-1.0) 02/07/19 17:16 Ur Leukocyte Esterase Neg Cori/uL (Negative) 02/07/19 17:16 Urine WBC (Auto) 1 /hpf (0-5) 02/07/19 17:16 Urine RBC (Auto) 1 /hpf (0-3) 02/07/19 17:16 Ur Squamous Epith Cells < 1 /hpf (0-5) 02/07/19 17:16 <Leigh Merino - Last Filed: 02/07/19 20:52> Medical Decision Making Medical Decision Making: Upon provider reevaluation patient is feeling better, is medically stable, and requires no further treatment in the ED at this time. Patient will be discharged home . Counseling was provided and all questions were answered regarding diagnosis and need for follow up withdr marrufo. There is agreement to discharge plan. Return if symptoms persist or worsen. 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 - Scribe Statement The provider has reviewed the documentation as recorded by the Shannon Del Cid Provider Attestation All medical record entries made by the Scribe were at my direction and personally dictated by me. I have reviewed the chart and agree that the record accurately reflects my personal performance of the history, physical exam, medical decision making, and the department course for this patient. I have also personally directed, reviewed, and agree with the discharge instructions and disposition. <Janie Leal - Last Filed: 02/07/19 18:48> Physician Patient Turnover Patient Signed Over To: Leigh Merino Handoff Comments: pending CT abd/pelvis, dispo <Janie Leal - Last Filed: 02/07/19 18:48>
[2019-02-07] MEDS ORDERED: Iohexol 300 100 ML IJ ONE (18:41)
[2019-02-07 21:10] VITALS: BP 120/70; PULSE 80; RESP 20; O2SAT 98
--- NOTE | 2019-02-08 08:13 | CT ---
Date of service: 02/07/2019 PROCEDURE: CT Abdomen and Pelvis with contrast HISTORY: Left lower quadrant abdominal pain COMPARISON: None. TECHNIQUE: Multiple contiguous axial images were performed through the abdomen and pelvis with the use of intravenous contrast. Subsequently, sagittal and coronal reformatted images were obtained. Radiation dose: Total exam DLP = 363.11 mGy-cm. This CT exam was performed using one or more of the following dose reduction techniques: Automated exposure control, adjustment of the mA and/or kV according to patient size, and/or use of iterative reconstruction technique. FINDINGS: LOWER THORAX: Mild areas of scattered atelectasis at the lung bases. LIVER: Unremarkable. No gross lesion or ductal dilatation. GALLBLADDER AND BILE DUCTS: Grossly preserved. Somewhat limited evaluation secondary to artifact. PANCREAS: Unremarkable. No gross lesion or ductal dilatation. SPLEEN: Unremarkable. Splenule. ADRENALS: Unremarkable. No mass. KIDNEYS AND URETERS: Unremarkable. No hydronephrosis. No solid mass. VASCULATURE: Unremarkable. No aortic aneurysm. No aortic atherosclerotic calcification or mural plaque present. BOWEL: Unremarkable. No obstruction. No gross mural thickening. Moderate to severe fecal retention in the colon. APPENDIX: Normal appendix. PERITONEUM: Unremarkable. No free fluid. No free air. LYMPH NODES: Unremarkable. No enlarged lymph nodes. BLADDER: Unremarkable. REPRODUCTIVE: Status post hysterectomy. BONES: No acute fracture. OTHER FINDINGS: None. IMPRESSION: Moderate to severe fecal retention in the colon. Somewhat limited evaluation of the gallbladder given streak artifact. Clinical correlation. Status post hysterectomy. A preliminary report was generated at 8:41 p.m. on 02/07/[address] Minor Hinkle from [facility]
== END 2019-02-07 21:08 | disposition home or self-care (01) ==
LOC: C.ER 15:54
DX: R10.32 Left lower quadrant pain (principal)
CPT/HCPCS: 74177; 80053; 81001; 83690; 85025; 99284; Q9966; Q9967

== ENCOUNTER 2019-02-13 06:30 | Emergency (ER) | payer OTHER ==
[2019-02-13 06:30] VITALS: BMI 26.5
[2019-02-13 08:24] LABS: BASO % 0.6 % (0.0-2.0); EOS # 0.5 K/uL (0.0-0.7); EOS % 7.7 % (0.0-4.0); HEMOGLOBIN 13.8 g/dL (11.0-16.0); LYMPH # 2.1 K/uL (1.0-4.3); LYMPH % 33.8 % (20.0-40.0); MEAN CORPUSCULAR HEMOGLOBIN 31.6 pg (27.0-31.0); MEAN CORPUSCULAR HGB CONC 35.1 g/dL (33.0-37.0); MEAN PLATELET VOLUME 8.8 fL (7.2-11.7); MONO # 0.5 K/uL (0.0-0.8); MONO % 8.7 % (0.0-10.0); NEUT # 3.1 K/uL (1.8-7.0); NEUT % 49.2 % (50.0-75.0); NRBC % 0.2 % (0.0-2.0); RBC 4.38 Mil/uL (3.80-5.20); RED CELL DISTRIBUTION WIDTH 12.7 % (11.5-14.5); WHITE BLOOD COUNT 6.3 K/uL (4.8-10.8)
[2019-02-13 08:27] LABS: SQUAMOUS EPITHIAL 15 /hpf (0-5); URINE BACTERIA RARE (<OCC); URINE BILIRUBIN NEGATIVE (NEGATIVE); URINE BLOOD NEGATIVE (NEGATIVE); URINE CLARITY Hazy (Clear); URINE COLOR Yellow (YELLOW); URINE GLUCOSE (UA) NORMAL (Normal); URINE LEUKOCYTE ESTERASE 3+ Leu/uL (Negative); URINE PROTEIN NEGATIVE (NEGATIVE); URINE UROBILINOGEN NORMAL mg/dL (0.2-1.0)
[2019-02-13 08:41] LABS: ALB/GLOB RATIO 1.4 (1.0-2.1); ALT/SGPT 29 U/L (9-52); AST/SGOT 46 U/L (14-36); BLOOD UREA NITROGEN 7 mg/dL (7-17); CALCIUM 9.3 mg/dl (8.6-10.4); GFR NON-AFRICAN AMERICAN > 60; LIPASE 80 U/L (23-300)
--- NOTE | 2019-02-13 08:45 | C.PDOC ---
History Of Present Illness 53 y/o female presents to the ER complaining of left sided abdominal pain. Patient was evaluated for LLQ abdominal pain in [facility] ER on 02/07/19. At the time, patient had CT Scan which showed constipation. Denies having fever,chills, nausea,vomiting, and diarrhea. (-) nausea, (-) vomiting, (-) fever Time Seen by Provider: 02/13/19 07:22 Chief Complaint (Nursing): Abdominal Pain History Per: Patient History/Exam Limitations: no limitations Onset/Duration Of Symptoms: Days Current Symptoms Are (Timing): Still Present Severity: Moderate Location Of Pain/Discomfort: Diffuse, LLQ Radiation Of Pain To:: None Associated Symptoms: denies: Fever, Chills, Nausea, Vomiting, Diarrhea Last Bowel Movement: Today Abnormal Vaginal Bleeding: No Past Medical History Reviewed: Historical Data, Nursing Documentation, Vital Signs Vital Signs: Last Vital Signs Temp 98.5 F 02/13/19 06:47 Pulse 86 02/13/19 06:47 Resp 20 02/13/19 06:47 BP 119/76 02/13/19 06:47 Pulse Ox 96 02/13/19 06:47 Primary Care Provider: Thaddeus Silva - Medical History PMH: Anxiety, Asthma, Bipolar Disorder, COPD, Depression Surgical History: Tonsillectomy Family History: States: No Known Family Hx - Social History Hx Tobacco Use: No Hx Alcohol Use: No Hx Substance Use: No - Immunization History Hx Tetanus Toxoid Vaccination: No Hx Influenza Vaccination: No Hx Pneumococcal Vaccination: No Review Of Systems Except As Marked, All Systems Reviewed And Found Negative. Constitutional: Negative for: Fever, Chills Gastrointestinal: Positive for: Abdominal Pain, Constipation. Negative for: Nausea, Vomiting, Diarrhea Physical Exam - Physical Exam Appears: Non-toxic, No Acute Distress Skin: Normal Color, Warm, Dry Head: Atraumatic, Normacephalic Eye(s): bilateral: Normal Inspection Nose: Normal Oral Mucosa: Moist Neck: Supple Chest: Symmetrical Cardiovascular: Rhythm Regular Respiratory: Normal Breath Sounds, No Rales, No Rhonchi, No Wheezing Gastrointestinal/Abdominal: Normal Exam, Soft, Tenderness (LLQ mild), No Guarding, No Rebound Extremity: Normal ROM Neurological/Psych: Oriented x3, Normal Speech Gait: Steady ED Course And Treatment - Laboratory Results Result Diagrams: 02/13/19 07:56 02/13/19 07:56 Lab Results: Total Bilirubin 0.5 mg/dL (0.2-1.3) 02/13/19 07:56 AST 46 U/L (14-36) H 02/13/19 07:56 ALT 29 U/L (9-52) 02/13/19 07:56 Alkaline Phosphatase 64 U/L (38-126) 02/13/19 07:56 Total Protein 6.9 g/dL (6.3-8.3) 02/13/19 07:56 Albumin 4.0 g/dL (3.5-5.0) 02/13/19 07:56 Globulin 2.9 gm/dL (2.2-3.9) 02/13/19 07:56 Albumin/Globulin Ratio 1.4 (1.0-2.1) 02/13/19 07:56 Lipase 80 U/L (23-300) 02/13/19 07:56 Urine Color Yellow (YELLOW) 02/13/19 07:56 Urine Clarity Hazy (Clear) 02/13/19 07:56 Urine pH 5.0 (5.0-8.0) 02/13/19 07:56 Ur Specific [place] 1.017 (1.003-1.030) 02/13/19 07:56 Urine Protein Negative mg/dL (NEGATIVE) 02/13/19 07:56 Urine Glucose (UA) Normal mg/dL (Normal) 02/13/19 07:56 Urine Ketones Negative mg/dL (NEGATIVE) 02/13/19 07:56 Urine Blood Negative (NEGATIVE) 02/13/19 07:56 Urine Nitrate Negative (NEGATIVE) 02/13/19 07:56 Urine Bilirubin Negative (NEGATIVE) 02/13/19 07:56 Urine Urobilinogen Normal mg/dL (0.2-1.0) 02/13/19 07:56 Ur Leukocyte Esterase 3+ Cori/uL (Negative) H 02/13/19 07:56 Urine WBC (Auto) 8 /hpf (0-5) H 02/13/19 07:56 Urine RBC (Auto) 1 /hpf (0-3) 02/13/19 07:56 Ur Squamous Epith Cells 15 /hpf (0-5) H 02/13/19 07:56 Urine Bacteria Rare (<OCC) 02/13/19 07:56 Lab Interpretation: Normal O2 Sat by Pulse Oximetry: 96 (RA) Pulse Ox Interpretation: Normal - Other Rad No standard instances X-Ray: Interpreted by Me Interpretation: OBS series: (-) OBS (+) stool Progress Note: Labs,UA, and X-Ray-Obs Series ordered. On re-evaluation in no distress, advised to follow up with clinic Reassessment Condition: Improved Disposition Counseled Patient/Family Regarding: Studies Performed, Diagnosis, Need For Fol lowup, Rx Given - Disposition Referrals: [facility] [Outside] [facility] [employer] 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 - Scribe Statement The provider has reviewed the documentation as recorded by the Aleeibe Florentino Del Cid Provider Attestation All medical record entries made by the Scribe were at my direction and personally dictated by me. I have reviewed the chart and agree that the record accurately reflects my personal performance of the history, physical exam, medical decision making, and the department course for this patient. I have also personally directed, reviewed, and agree with the discharge instructions and disposition.
[2019-02-13 09:53] VITALS: BP 136/84; PULSE 72; RESP 18; TEMP 97.5
--- NOTE | 2019-02-13 10:48 | RAD ---
Date of service: 02/13/2019 PROCEDURE: Radiographs of the chest and abdomen (obstructive series) HISTORY: Abdominal pain COMPARISON: No prior. TECHNIQUE: AP radiograph of the chest, with upright and supine radiographs of the abdomen. 3 views obtained. FINDINGS: CHEST: Lungs: Clear. Cardiovascular: There is mild cardiomegaly. No pulmonary vascular congestion. No aortic atherosclerotic calcification present Pleura: No pleural fluid. No pneumothorax. Other findings: None. ABDOMEN AND PELVIS: Bowel: There is moderate amount of stool in the colon. The bowel gas pattern is nonspecific. No evidence of mechanical obstruction. Free air: None. Bones: Unremarkable. Other findings: None. IMPRESSION: Nonspecific nonobstructive bowel gas pattern. Clear lungs.
[2019-02-13 14:57] VITALS: O2SAT 96
== END 2019-02-13 09:53 | disposition home or self-care (01) ==
LOC: C.ER 06:30
DX: K59.00 Constipation, unspecified (principal); R10.32 Left lower quadrant pain